=== PATIENT | female | born 1975 | race Caucasian/White ===

== ENCOUNTER 2018-08-29 23:27 | Emergency (ER) | payer BC ==
[~2018-08-29] VITALS: Ht 160 cm; Wt 69.9 kg
[2018-08-29 23:32] VITALS: Ht 160 cm; Wt 69.9 kg
[2018-08-30 01:20] LABS: BASOPHIL % 0.4 % (0-2)
[2018-08-30 01:25] LABS: CARBON DIOXIDE 24.4 mmol/L (21-32); CHLORIDE SERUM 102 mmol/L (98-107); CREATININE SERUM 0.7 mg/dL (0.6-1.0); GFR1 > 60 mL/min; GLUCOSE SERUM 103 mg/dL (74-106); SODIUM SERUM 138 mmol/L (136-145)
[2018-08-30 01:30] LABS: ALBUMIN 3.4 g/dL (3.4-5.0); ALKALINE PHOSPHATASE 81 U/L (46-116); AST/SGOT 11 U/L (15-37); BILIRUBIN TOTAL 0.6 mg/dL (0.20-1.00); LIPASE 174 IU/L (73-393); TOTAL PROTEIN, SERUM 7.7 g/dL (6.4-8.2)
[2018-08-30 01:32] LABS: RED CELL DISTRIBUTION WIDTH 15.8 % (11.5-14.5)
[2018-08-30 01:34] LABS: PLATELET COUNT 552 x10^3mcL (130-400)
[2018-08-30 01:39] LABS: ALT/SGPT 15 U/L (14-59)
[2018-08-30 04:02] VITALS: BP 131/76
== END 2018-08-30 03:51 | disposition home or self-care (01) ==
LOC: ED 23:27
PROVIDERS: Emergency Medicine
DX: K52.9 Noninfective gastroenteritis and colitis, unspecified (principal); E87.6 Hypokalemia; R00.2 Palpitations; Z88.0 Allergy status to penicillin
CPT/HCPCS: J7030